=== PATIENT | female | born 1985 | race Hispanic/Latino ===

== ENCOUNTER 2016-09-16 15:26 | Emergency (ER) | payer SELFPAY ==
[~2016-09-16] VITALS: Ht 157.5 cm; Wt 68.5 kg
[2016-09-16] MEDS ORDERED: FLEXERIL10 MG PO (17:35)
[2016-09-16] MEDS ORDERED: LIDODERM 5% P1 PATCH TD (17:35)
[2016-09-16] MEDS ORDERED: NAPROXEN500 MG PO (17:35)
[2016-09-16 17:51] VITALS: BP 106/75
== END 2016-09-16 17:52 | disposition home or self-care (01) ==
LOC: EME 15:26
DX: M54.5 Low back pain (principal); V49.9XXA Car occupant (driver) (passenger) injured in unspecified traffic accident, initial encounter; Z88.0 Allergy status to penicillin; F17.200 Nicotine dependence, unspecified, uncomplicated
CPT/HCPCS: 99281; 99284